=== PATIENT | male | born 1975 | race Two or more races ===

== ENCOUNTER 2019-10-01 10:28 | Day surgery (SDC) | payer OTHER ==
[~2019-10-01] VITALS: Ht 188 cm; Wt 87.5 kg
[2019-10-01] VITALS (10 sets, daily range): BP systolic 99–116; BP diastolic 59–81
--- NOTE | 2019-10-01 07:09 | Pre-Procedure Note/Attestation ---
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 I attest that, if there was a reasonable possibility of needing a blood transfusion, the patient (or the patient's legal apparel trimmings sales representative) was given the [place] [employer] standardized written summary, pursuant to the [place] Blood Safety Act ([place] Health and Safety Code # 1645, as amended). I attest that I re-evaluated the patient just prior to the surgery and that there has been no change in the patient's H&P, except as documented below: Noreen Daniels MD Oct 01, 2019 07:09
--- NOTE | 2019-10-01 10:00 | Immediate Post-Op Evaluation ---
Immediate Post-Op Evalulation Immediate Post-Op Evalulation Procedure: Anoscopy with Biopsy Date of Evaluation: Oct 01, 2019 Time of Evaluation: 12:19 IV Fluids: 700 LR Blood Products: 0 Estimated Blood Loss: 10 Urinary Output: 0 Blood Pressure Systolic: 99 Blood Pressure Diastolic: 68 Pulse Rate: 63 Respiratory Rate: 16 O2 Sat by Pulse Oximetry: 98 Temperature (Fahrenheit): 98.4 Pain Score (1-10): 1 Nausea: No Vomiting: No Complications 0 Patient Status: awake, reacts, patent, none Hydration Status: adequate Dru Grams Cefoxititn IV Given Within 1 Hr of Incision: Yes Time Given: 11:28 Julian Cortes MD Oct 01, 2019 10:00
[~2019-10-01 10:28] MED LIST: CLOMIPHENE CITR50 MG PO; JULUCA 50-25 M1 EACH PO; LOSARTAN-HCTZ1 EAC2 ORAL; PROSCAR5 MG ORAL; cefOXitin 2gm Inj ONE
[2019-10-01] MEDS ORDERED: Ropivacaine 5mg/ml Vial 20ml INJ ONE (10:43)
[2019-10-01] MEDS ORDERED: EPINEPHrine 1mg/1ml Amp ONE (10:43)
[2019-10-01] MEDS ORDERED: Bupivacaine 0.25% Inj 30ml INJ ONE (10:43)
[2019-10-01] MEDS ORDERED: Sterile Water Irrig 1000ml IRRIG ONE (11:00)
[2019-10-01] MEDS ORDERED: NS Irrig 1000ml ONE (11:00)
[2019-10-01] MEDS ORDERED: LR 1000ml ONE (11:00)
--- NOTE | 2019-10-01 11:06 | 48 Hour Post Anesthesia Eval ---
Post Anesthesia Evaluation Procedure: Anoscopy with Biopsy Date of Evaluation: Oct 01, 2019 Time of Evaluation: 14:23 Blood Pressure Systolic: 110 0: 72 Pulse Rate: 67 Respiratory Rate: 18 Temperature (Fahrenheit): 98.6 O2 Sat by Pulse Oximetry: 99 Airway: patent Nausea: No Vomiting: No Pain Intensity: 2 Hydration Status: adequate Cardiopulmonary Status: Stable Mental Status/LOC: patient returned to baseline Follow-up Care/Observations: 0 Post-Anesthesia Complications: 0 Follow-up care needed: ready to discharge Julian Cortes MD Oct 01, 2019 11:06
--- NOTE | 2019-10-01 11:06 | Anethesia Preoperative Eval ---
Anesthesia Pre-op PMH/ROS General Date of Evaluation: Oct 01, 2019 Time of Evaluation: 11:09 Anesthesiologist: Sophia ASA Score: ASA 3 Mallampati Score Class I : Soft palate, uvula, fauces, pillars visible Class II: Soft palate, uvula, fauces visible Class III: Soft palate, base of uvula visible Class IV: Only hard plate visible Mallampati Classification: Class II Surgeon: Jeremiah Diagnosis: HPV Surgical Procedure: Anoscopy with Biopsy Anesthesia History: none Family History: no anesthesia problems Allergies: Coded Allergies: No Known Allergies (Unverified , 10/01/19) Medications: see eMAR Patient NPO?: Yes Past Medical History Cardiovascular: Reports: HTN Hematology/Immune: Reports: other - HIV PSxH Narrative: Septoplasty Anesthesia Pre-op Phys. Exam Physician Exam Last Vital Signs Date Time Temp Pulse Resp B/P (MAP) Pulse Ox O2 Delivery O2 Flow Rate FiO2 10/01/19 10:55 Room Air Constitutional: NAD Neurologic: CN 2-12 intact Cardiovascular: RRR Respiratory: CTA Gastrointestinal: S/NT/ND Airway Exam Mallampati Score: Class II MO: full Teeth: missing Anesthesia Pre-op A/P Risk Assessment & Plan Assessment: ASA 3 Plan: TIVA Status Change Before Surgery: No Pre-Antibiotics Dru Grams Cefoxitin IV Given Within 1 Hr of Incision: Yes Time Given: 11:28 Julian Cortes MD Oct 01, 2019 11:06
[2019-10-01] MEDS ORDERED: Lidocaine 1% Plain 30 ml INJ ONE (11:12)
[2019-10-01] MEDS ORDERED: Sodium Chloride 10ml vial INJ ONE (11:13)
[2019-10-01] MEDS ORDERED: Flumazenil 0.5mg/5ml Inj IV ONE (11:13)
[2019-10-01] MEDS: Acetic Acid 3% Solution 15ml TOPIC ONE ×2 (11:15→11:34)
[2019-10-01] MEDS ORDERED: NS Irrig 1000ml IRRIG ONE ×2 (11:34→12:30)
--- NOTE | 2019-10-01 12:05 | Brief Operative Note ---
Immediate Post Operative Note Operative Note Pre-op Diagnosis: HPV Procedure: High-resolution anoscopy with biopsies, excision and fulguration of anal condyloma Post-op Diagnosis: HPV Post-op Diagnosis: same as pre-op Findings: consistent w/pre-op dx studies Surgeon: Noreen Daniels MD Anesthesiologist: Julian Cortes MD Anesthesia: moderate sedation Specimen: yes Complications: none Condition: stable Fluids: see anesthesia record Estimated Blood Loss: minimal Drains: none Implant(s) used?: No Noreen Daniels MD Oct 01, 2019 12:05
--- NOTE | 2019-10-01 15:00 | Operative Note - Dictated ---
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 PROCEDURE: High-resolution anoscopy with biopsies, excision and fulguration of anal condyloma. SURGEON: Noreen Daniels MD. ANESTHESIOLOGIST: Julian Cortes MD. ANESTHESIA: Propofol sedation with local anesthetic. INDICATION FOR PROCEDURE: The patient is a 44-year-old male, who was sent to my office by his physician, Dr. Alireza Rousseau for colorectal surgical evaluation of an anal Pap smear which showed LSIL. The patient was found to have some scattered external condyloma as well. In light of the patient's history of HIV and also HPV, it was determined at this time to proceed with a high-resolution anoscopy with biopsies. DESCRIPTION OF PROCEDURE: Upon consent of the patient, the patient was brought to the operating room and placed in a prone juliano-knife position on the operating table. Once adequate sedation had been established with propofol drip, the patient's buttocks were prepped and draped in usual surgical fashion. A 40 mL of 5% ropivacaine with epinephrine mixed with 8 mg of dexamethasone was used as a perianal and pudendal block. A [place] retractor was placed into the anal canal and multiple biopsies were taken of all four quadrants of the perineal region, anal verge, and dentate line. These were all sent off the field as separate specimens. There were also a few scattered external condyloma which were also electrocauterized as well. The anal canal was then stained with 3% acetic acid. All areas stained white were electrofulgurated as well. This patient was noted to have some moderate-sized internal hemorrhoids circumferentially. The anal canal was then irrigated and hemostasis confirmed. Sterile dry dressing was used as outer dressing. Sponge, needle, and instrument counts were correct at the end of the case. The patient was awakened from anesthesia and brought to the postanesthesia recovery room in stable condition. ESTIMATED BLOOD LOSS: Less than 5 mL. DRAINS: None. SPECIMEN: Multiple biopsies of the perineal region, anal verge, and dentate line. COMPLICATIONS: None. Noreen Daniels M.D. DR: JORGE JOB#: [id number] CC: Alireza Rousseau M.D.
== END 2019-10-01 13:15 | disposition home or self-care (01) ==
LOC: SUR 10:28
DX: A63.0 Anogenital (venereal) warts (principal); B20 Human immunodeficiency virus [HIV] disease
CPT/HCPCS: 46607; 46910; 94003; J0171; J0694; J1100; J2001; J2250; J2704; J2795; J7120; 94150